=== PATIENT | male | born 1995 | race Caucasian/White ===

== ENCOUNTER → 2020-01-26 | Outpatient (CLI) | payer SELFPAY ==
[~2020-01-26] MED LIST: NORCO 325 MG-51 TAB PO; RITALIN 20M20 MG/TAB PO; ZYRTEC ALLERGY10 MG PO
== END ==
LOC: ZCOL.LAB 14:06
DX: M79.10 Myalgia, unspecified site (principal); R53.83 Other fatigue; R09.81 Nasal congestion; Z20.828 Contact with and (suspected) exposure to other viral communicable diseases